=== PATIENT | male | born 2000 | race American Indian/Alaskan Native ===

== ENCOUNTER 2018-06-16 17:57 | Emergency (ER) | payer MEDICAID ==
[2018-06-16 18:03] VITALS: BP 138/75; PULSE 77; TEMP 98.6; O2SAT 100
--- NOTE | 2018-06-16 18:26 | C.PDOC ---
History Of Present Illness 17 year old male presents to the ED for evaluation of left ear mass for 1 week. Patient reports the mass is now smaller since it was drained. He denies hearing changes, fever, chills, and any other associated symptoms. L EAR MASS X 1 WEEK. PS NOW SMALLER SINCE DRAINING BUT PERSISTENT. NO HEARING CHANGE, FEVER, OTHER ASSOC SX EXAM NAD HEENT L EAR +VISIBLE CYST OUTER EAR CANAL. MIN ERYTHEMA. SCANT SEROUS DRAINAGE. TM WNL MDM MOM STATES PT SEES DR OLIVER PERIODICALLY FOR EAR WAX REMOVAL. ADVISED FU ENT FOR DEFINITIVE MANAGEMENT Time Seen by Provider: 06/16/18 18:09 Chief Complaint (Nursing): ENT Problem History Per: Patient History/Exam Limitations: None Onset/Duration Of Symptoms: Days (x1 week) Current Symptoms Are (Timing): Still Present Past Medical History Reviewed: Historical Data, Nursing Documentation, Vital Signs Vital Signs: Last Vital Signs Temp 98.6 F 06/16/18 18:02 Pulse 77 06/16/18 18:02 Resp 20 06/16/18 18:02 BP 138/75 06/16/18 18:02 Pulse Ox 100 06/16/18 18:02 Family History: States: Unknown Family Hx - Social History Hx Tobacco Use: No Hx Alcohol Use: No Hx Substance Use: No - Immunization History Hx Tetanus Toxoid Vaccination: No Hx Influenza Vaccination: No Hx Pneumococcal Vaccination: Yes Review Of Systems Except As Marked, All Systems Reviewed And Found Negative. Constitutional: Negative for: Fever, Chills ENT: Negative for: Other (changes in hearing.) Skin: Positive for: Other (left ear mass. ) Physical Exam - Physical Exam Appears: Well, No Acute Distress Skin: Normal Color, Warm, Dry Head: Atraumatic, Normacephalic Eye(s): bilateral: Normal Inspection Ear(s): Left: Other ((+) visible cyst to the outer ear canal. (+) scant serous drainage. (+) mild erythema. TM within normal limits. ), Right: Normal Nose: Normal Oral Mucosa: Moist Throat: Normal, No Erythema, No Exudate Neck: Normal ROM, Supple Respiratory: Other (NARD) Neurological/Psych: Oriented x3, Normal Speech, Normal Cognition ED Course And Treatment O2 Sat by Pulse Oximetry: 100 (RA) Pulse Ox Interpretation: Normal Medical Decision Making Medical Decision Making: Progress/Update: Mother states the patient visits Dr. Oliver periodically for ear wax removal. Patient stable for discharge home. Advised to follow up with ENT for definitive management. Disposition Counseled Patient/Family Regarding: Diagnosis, Need For Followup - Disposition Referrals: Flakito Oliver MD [Staff Provider] - Disposition: HOME/ ROUTINE Disposition Time: 18:25 Condition: GOOD Forms: [facility] (Slovak) - Clinical Impression Clinical Impression: Cyst of ear canal - Scribe Statement The provider has reviewed the documentation as recorded by the Scribe (Emili Pedraza) Provider Attestation: All medical record entries made by the Scribe were at my direction and personally dictated by me. I have reviewed the chart and agree that the record accurately reflects my personal performance of the history, physical exam, medical decision making, and the department course for this patient. I have also personally directed, reviewed, and agree with the discharge instructions and disposition.
[2018-06-16 18:41] VITALS: RESP 18
== END 2018-06-16 18:38 | disposition home or self-care (01) ==
LOC: C.ER 17:57
DX: Q18.1 Preauricular sinus and cyst (principal)